=== PATIENT | male | born 1945 | race Caucasian/White ===

== ENCOUNTER 2019-04-21 12:00 | Emergency (ER) | payer MEDICARE, OTHER, SELFPAY ==
[2019-04-21] VITALS (10 sets, daily range): BP systolic 87–99; BP diastolic 66–77; PULSE 74–97; RESP 16–24; TEMP 36.6–36.8; O2SAT 94–100; BMI 21.2
--- NOTE | 2019-04-21 12:04 | CT_ITS ---
STUDY: CTA HEAD AND NECK WITH CONTRAST REASON FOR EXAM: Male, 73 years old. STROKE-RT SIDED WEAKNESS, RT FACIAL DROOP, RT SIDE FLACCID. RADIATION DOSAGE (If Supplied By Facility): CTDIvol = ( 28.2 ) mGy, DLP = ( 663.01 ) mGycm TECHNIQUE: CT angiography was performed with a multi-detector CT scanner. Data acquisition was obtained from the skull base through the vertex following intravenous administration of IV Isovue 300 100. MIP images were reconstructed from the axial data set. Post-processing of the angiographic images was performed, with multiplanar reformation and 3D reconstruction. Individualized dose optimization techniques were used for this CT. COMPARISON: No relevant priors. FINDINGS: there is greater than 70% stenosis involving the petrous carotid artery (axial image #148 series 2). There is calcified plaque formation of the right cavernous carotid artery, without a cross-sectional luminal stenosis. There is calcified plaque formation of the left cavernous carotid artery, without a cross-sectional luminal stenosis. Normal right A1 segments of the anterior cerebral artery. Normal left A1 segments of the anterior cerebral artery. Normal intact anterior communicating artery (ACOM). Normal bilateral A2 segments of the anterior cerebral arteries. Normal right M1 and M2 segments of the middle cerebral arteries, with a normal M1 bifurcation. Normal left M1 and M2 segments of the middle cerebral arteries, with a normal M1 bifurcation. Normal right posterior communicating artery (PCOM). Normal left posterior communicating artery (PCOM). There is moderate stenosis of the right intradural vertebral artery. There is near occlusion of the left intradural vertebral artery (axial image #144 series 2) Small patent basilar artery with a normal basilar bifurcation. The visualized bilateral superior cerebellar (SCA) arteries are normal. Patent right origin posterior cerebral artery. There is nonvisualization of the left posterior cerebral artery. There is no demonstrated aneurysm of the [place] of [place]. There is no demonstrated abnormality of the visualized brain. AORTIC ARCH: There is atherosclerotic plaque of the visualized aortic arch. RIGHT CAROTID ARTERIES: There is atherosclerotic tortuous elongation of the right common carotid artery. There is mild atherosclerotic plaque formation with minimal narrowing of the right carotid bulb. There is moderate atherosclerotic plaque formation of the origin of the right internal carotid artery with an estimated stenosis of 50-69% stenosis. There is atherosclerotic tortuous elongation of the cervical portion of the right internal carotid artery. There is mild atherosclerotic plaque formation of the origin of the right external carotid artery with less than 50% cross sectional diameter stenosis. LEFT CAROTID ARTERIES: Normal left common carotid artery (CCA). There is extensive atherosclerotic plaque formation with severe narrowing of the carotid bulb with a hemodynamically significant stenosis. There is extensive atherosclerotic plaque formation of the origin of the left internal carotid artery with an estimated stenosis of greater than 70%. There is atherosclerotic tortuous elongation of the cervical portion of the left internal carotid artery. There is mild atherosclerotic plaque formation of the origin of the left external carotid artery with less than 50% cross sectional diameter stenosis. VERTEBRAL ARTERIES: There is moderate atherosclerotic stenosis of the bilateral intradural vertebral arteries. 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 Greater than 70% stenosis of the bilateral vertebral arteries. 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 50-69% stenosis of the right ICA Greater than 70% stenosis of the left ICA. Electronically Signed: Dontae Gama MD at 13:40 EDT Tel , Service support ,
--- NOTE | 2019-04-21 12:04 | CT_ITS ---
STUDY: CT BRAIN WITHOUT CONTRAST REASON FOR EXAM: Male, 73 years old. CVA RADIATION DOSAGE (If Supplied By Facility): CTDIvol = ( 44.99 ) mGy, DLP = ( 745.49 ) mGycm TECHNIQUE: Transaxial CT imaging of the brain was performed without administration of intravenous contrast material. Individualized dose optimization techniques were used for this CT. COMPARISON: None. FINDINGS: There is cerebral atrophy with widening of the extra-axial spaces and ventricular dilatation. There are areas of decreased attenuation within the white matter tracts of the supratentorial brain, consistent with microvascular disease changes. There are bilateral symmetric basal ganglia hypodensities (axial image #17 series 2) There is no intracranial hemorrhage. There are no findings of an acute ischemic infarction. Normal soft tissue structures. Normal visualized paranasal sinuses. CT/Brain/Head without Contrast IMPRESSION: No intracranial hemorrhage. Basal ganglia hypodensities. Infarcts are not excluded. Comparison with prior examinations if available or further evaluation with MRI is recommended. N.B. : The above information has been verbally conveyed by Dontae Gama MD to Leonid Alcantara MD, on 04/21/2019 12:23:46 (ET). Electronically Signed: Dontae Gama MD at 12:24 EDT Tel , Service support ,
--- NOTE | 2019-04-21 12:04 | RAD_ITS ---
STUDY: X-RAY CHEST REASON FOR EXAM: Male, 73 years old. Weakness, CVA TECHNIQUE: Single AP portable view of the chest. COMPARISON: None. FINDINGS: EKG leads overlie the chest There are interstitial fibrotic changes of the lungs. There is no demonstrated pleural abnormality. Normal size heart. Normal mediastinum and jacobo. Normal visualized pulmonary arteries. Normal visualized aortic arch and descending thoracic aorta. There are diffuse degenerative changes of the visualized thoracic spine. There is degenerative osteoarthritis of the bilateral shoulders. There is no demonstrated abnormality of the visualized soft tissue structures of the upper abdomen. RAD/Chest 1 View IMPRESSION: Degenerative changes, as described above. No demonstrated acute cardiopulmonary process. Electronically Signed: Hollis Dennis MD at 12:41 EDT , Service support ,
--- NOTE | 2019-04-21 12:04 | EKG12_ITS ---
Test Reason : STROKE TEAM Blood Pressure : / mmHG Vent. Rate : 084 BPM Atrial Rate : 084 BPM P-R Int : 142 ms QRS Dur : 064 ms QT Int : 394 ms P-R-T Axes : 014 034 084 degrees QTc Int : 465 ms Normal sinus rhythm Low voltage QRS ST & T wave abnormality, consider anterior ischemia Prolonged QT Abnormal ECG Confirmed by CHARLI CARDENAS ([id number]), newspaper managing editor DONAVAN HICKS ([id number]) on 04/24/2019 10:18:32 AM Referred By: ILIANA Confirmed By:CHARLI CARDENAS
[2019-04-21 12:26] LABS: Bedside Glucose 76 mg/dL (70-110)
--- NOTE | 2019-04-21 12:31 | NURSING ---
CALLED EMS TO DOUBLE CHECK NAME AND RE-ASK IF THERE IS ANY INFO ON THIS PT.
--- NOTE | 2019-04-21 12:34 | CM.ED ---
SOCIAL WORK ATTEMPTED TO CONTACT SON FOR NURSING. NUMBER LISTED FOR PATIENT IS A NON WORKING NUMBER. NO CONTACT INFORMATION FOR SON IN CHART. Jodie ANAND MSW, AGRICULTURAL LOAN OFFICER.
[2019-04-21 12:38] LABS: Absolute Lymphocyte Count 1.28 X10^3/uL (0.83-4.51); Absolute Neutrophil Count 8.2 X10^3/uL (2.0-7.7); Basophil# 0.02 X10^3/uL; Basophil% 0.2 % (0-1); Eosinophil# 0.02 X10^3/uL; Eosinophils% 0.2 % (0-5); Hematocrit 40.9 % (40-54); Hemoglobin 13.6 g/dL (13.0-16.5); Lymphocyte # 1.28 X10^3/ul (4.0); Lymphocyte % 12.1 % (19-41); Mean Corp Hgb Conc 33.3 g/dL (32-36); Mean Corpuscular Hgb 33.3 pg (27.0-32.0); Mean Platelet Vol. 10.3 fl (6.2-12.0); Monocyte# 0.92 X10^3/uL; Monocyte% 8.7 % (0-10); NRBC Flagged by Analyzer 0 % (0-5); Neutrophil # 8.23 X10^3/uL (2.7-7.7); Neutrophil % 78.1 % (47-70); POSITIVE MORPHOLOGY YES; Platelet Count 164 K/mm3 (150-450); RBC Distribution Width CV 14.6 % (11.6-14.6); RBC Distribution Width SD 54.4 fl (35.1-43.9); Red Blood Count 4.09 M/mm3 (4.6-6.2); White Blood Count 10.5 K/mm3 (4.4-11.0)
[2019-04-21 12:39] LABS: Differential Indicated SCAN CRITERIA MET
[2019-04-21 12:46] LABS: International Normalized Ratio 1.3; Partial Thromboplast Time 33.7 Seconds (24.1-36.2); Prothrombin Time (Protime)PT. 15.9 SECONDS (11.7-14.9)
--- NOTE | 2019-04-21 12:47 | ED.RN ---
pt to CT after weight was obtained. returned to room at 1210. Dr. Kobe GUTIERREZ neurologist beamed in with Dr. Alcantara in room. determined to not do TPA at this time. Trying to reach son. spoke with EMS and they reported he would be coming to ED but he has not arrived thus far.
--- NOTE | 2019-04-21 12:47 | CHAPLAIN ---
responded to stroke alert; patient was taken to CT; no family members present at this time; SW is on the scene
--- NOTE | 2019-04-21 13:00 | CM.ED ---
SOCIAL WORK PATIENT'S SON AT BEDSIDE. INTRODUCED ROLE. SON REQUESTING TO SPEAK WITH DR. BARRIENTOS. DR. BARRIENTOS UPDATED SON AT BEDSIDE.
[2019-04-21 13:09] LABS: Anion Gap 10 (5-15); BUN 52 mg/dL (7-18); BUN/Creat Ratio 35.4 RATIO (10-20); Calcium,Total 8.6 mg/dL (8.5-10.1); Chloride 99 mmol/L (98-107); Creatinine, Serum 1.47 mg/dL (0.70-1.30); EST Glomerular Filtration Rate 50 mL/min (>60); Est Glom Filt Rate - Afr Amer 61 mL/min (>60); Estimated Creatinine Clearance 43.74 ml/min; Glucose 99 mg/dL (74-106); Potassium 4.1 mmol/L (3.5-5.1); Sodium Level 140 mmol/L (136-145)
--- NOTE | 2019-04-21 13:09 | ED.RN ---
troponin 2.01- notified Dr. Alcantara
--- NOTE | 2019-04-21 14:00 | ED.DCSUM_ITS ---
- ER Visit Summary Date of Service: 04/21/19 Chief Complaint: Stroke History of Present Illness: The patient is a 73 M who presents by EMS. He had suspected onset of stroke symptoms at 11:15 AM today. This was witnessed by his son. He lives with his son. He had slurred speech, right-sided facial droop, and right side arm and leg weakness. This is an abrupt change from his baseline. He is normally able to ambulate with help. He does not take medications. The son reports that he has had multiple falls recently. Physical Examination: Afebrile and vital signs unremarkable except blood pressure 87/67. Patient has an NIH of 14. He scored a 1 for level of consciousness, 2 for level of consciousness questions, 2 for level of consciousness commands, 1 for facial palsy, 4 for right arm weakness, 2 for right leg weakness, 2 for best language. Patient has multiple healing abrasions to his face and scalp. He has skin tears to his right arm and bruises to his extremities. He is slightly unkempt. Heart regular. Lungs clear. Abdomen soft. Test Results: EKG showed sinus rhythm at a rate of [address]-T wave changes. CBC, BMP unremarkable except for BUN 52, creatinine 1.47. INR 1.3 and PTT 33.7. Troponin 2.010. Chest x-ray showed nothing acute. CT brain showed bilateral basal ganglia hypodensities. There is also possibly a small punctate hemorrhage in his right basal ganglia. CTA of the head and neck showed multiple areas of stenosis and a left [place]WILL AMBASSADOR occlusion. Emergency Department Course and Treatment: Stroke team was activated based on his symptoms and timing. He did meet criteria for possible TPA and possible LVO retrieval. He was taken directly to CT. Neurology was available for teleconference. Initially, we were unsure if he was on any medications. We are unsure about his history or recent traumas. We did not feel that he would be a good candidate for TPA. Neurology also noted a possible small area of hemorrhage, and the felt that TPA would be contraindicated. I spoke with the radiologist who also agreed that there may be a small area of hemorrhage. I discussed with the neurologist again. He has multiple areas of stenosis and occlusion. They felt that he would benefit from transfer to their facility for further level of care. Family was in agreement. He will be seen in the ED. They will evaluate him for the possible stroke and also the elevated troponin. Will hold off anticoagulation for now as the patient is stable. He is not having chest pain. He does have some borderline blood pressures in the 80s and 90s systolic. His heart rate is normal. He has no signs of sepsis or shock. Treatment Plan: As above Disposition: Transfer Impression: 1. Right side weakness 2. NSTEMI This note was generated with [employer] dictation software. It may contain incorrect words, spelling, and punctuation that were not noted in review of the chart prior to signing ED Disposition - Plan for ED Patient: Referrals: Care Physician,No Primary [Primary Care Provider] -
[2019-04-21] MEDS: 0.9% Normal Saline 1,000 ML 999 ML IV (15:30)
--- NOTE | 2019-04-21 16:34 | ED.RN ---
repeat troponin drawn at 1620. stated not to enter order- will redraw at [facility].
== END 2019-04-21 16:28 | disposition short-term general hospital (02) ==
PROVIDERS: Emergency Provider Emergency Medicine
DX: I21.4 Non-ST elevation (NSTEMI) myocardial infarction (principal); R53.1 Weakness; R29.6 Repeated falls
CPT/HCPCS: 51702; 70450; 70496; 70498; 71045; 80048; 82962; 84484; 85025; 85610; 85730; 93005; 96360; 96361; 99285; J7030; Q9967; A4216